=== PATIENT | female | born 1980 | race Caucasian/White ===

== ENCOUNTER 2017-06-26 15:50 | Inpatient (IN) | payer OTHER ==
[~2017-06-26] VITALS: Ht 157.5 cm; Wt 55.8 kg
[2017-06-27] MEDS ORDERED: SYNTHROID100 MCG PO (08:12)
== END 2017-06-30 08:48 | DRG 747 ==
LOC: OB/GYN 06-28 06:10 → O/R 06-28 06:10 → SURG 06-28 09:15 → OB/GYN 06-28 11:43
PROVIDERS: Obstetrics & Gynecology Maternal & Fetal Medicine
PROC: 0UVC7ZZ Restriction of Cervix, Via Natural or Artificial Opening (ICD-10-PCS; principal; 2017-06-28 09:15)
DX: N88.3 Incompetence of cervix uteri (principal)

== ENCOUNTER 2019-02-26 10:07 | Outpatient (CLI) | payer OTHER ==
[~2019-02-26 10:07] MED LIST: SYNTHROID100 MCG PO
== END 2019-02-26 15:39 | disposition home or self-care (01) ==
LOC: NST 10:07
DX: Z34.83 Encounter for supervision of other normal pregnancy, third trimester (principal)

== ENCOUNTER 2019-02-28 06:10 | Inpatient (IN) | payer OTHER ==
[~2019-02-28] VITALS: Ht 157.5 cm; Wt 65.3 kg
[2019-02-28] MEDS ORDERED: SYNTHROID112 MCG PO (06:51)
[2019-02-28] MEDS ORDERED: PRENATAL TABLE1 EACH PO (06:52)
== END 2019-03-03 12:24 | disposition home or self-care (01) | DRG 786 ==
LOC: SURG-SUITE 06:10 → LDR 06:10 → O/R 13:36 → SURG-SUITE 14:12
PROVIDERS: Obstetrics & Gynecology; ADMIT Obstetrics & Gynecology Maternal & Fetal Medicine
PROC: 0UCC7ZZ Extirpation of Matter from Cervix, Via Natural or Artificial Opening (ICD-10-PCS; 2019-02-28)
PROC: 4A033R1 Measurement of Arterial Saturation, Peripheral, Percutaneous Approach (ICD-10-PCS; 2019-02-28)
PROC: 4A1HXCZ Monitoring of Products of Conception, Cardiac Rate, External Approach (ICD-10-PCS; 2019-02-28)
PROC: 10D00Z1 Extraction of Products of Conception, Low, Open Approach (ICD-10-PCS; principal; 2019-02-28 12:00)
DX: O82 Encounter for cesarean delivery without indication (principal); O34.33 Maternal care for cervical incompetence, third trimester; O34.211 Maternal care for low transverse scar from previous cesarean delivery; Z3A.37 37 weeks gestation of pregnancy; Z22.330 Carrier of Group B streptococcus; Z37.0 Single live birth